=== PATIENT | female | born 1975 | race Caucasian/White ===

== ENCOUNTER 2022-05-03 10:48 | Emergency (ER) | payer OTHER ==
[~2022-05-03] VITALS: Ht 162.6 cm; Wt 77.1 kg
[2022-05-03 10:51] VITALS: BP_SYST 140
--- NOTE | 2022-05-03 10:55 | NUR ---
Placed in room 4 . Placed on youth nutritional monitor, blood pressure machine and pulse oximeter. To gown for exam. Side rails up. Report given to KARIN REYES.
--- NOTE | 2022-05-03 11:12 | NUR ---
Dr Kincaid placed orders for patient
[2022-05-03] MEDS ORDERED: HYDROmorphone 1 MG/ML INJ. CARTRIDGE IM ONE (11:15)
[2022-05-03] MEDS ORDERED: GABAPENTIN 100 MG CAPSULE PO ONE (11:15)
--- NOTE | 2022-05-03 11:30 | NUR ---
FIRST CONTACT WITH PT. PT REPORTS L ARM PAIN. PT HAD LYMPH NODES REMOVED 03/04/22, NOW HAS LYMPHEDEMA. PT AWAITING LYMPHEDEMA TREATMENT. PT TOOK NORCO AT HOME WHICH IS NOT HELPING. L ARM IS EXTREMELY SWOLLEN DOWN TO HAND, MILD ECCHYMOSIS NOTED TO L UPPER CHEST PAIN WHERE SWELLING IS. +CMS. 09/03 PAIN. RESP EVEN AND UNLABORED. VSS. ACCOMPANIED BY FRIEND
[2022-05-03] MEDS ORDERED: NEU300 PO (12:54)
[2022-05-03] MEDS ORDERED: MORP15TA60 PO (12:54)
[2022-05-03] MEDS ORDERED: IBUP-1969 PO (12:54)
--- NOTE | 2022-05-03 13:16 | NUR ---
DC INSTRUCTIONS GIVEN AND DISCUSSED, RXS REVIEWED. QUESTIONS ANSWERED. PT REPORTS IMPROVEMENT IN PAIN, 03/04. VERB UNDERSTANDING. VSS. ACCOMPANIED BY FRIEND. PT IS STABLE FOR DC HOME
[2022-05-03 13:21] VITALS: BP_SYST 132
== END 2022-05-03 13:16 | disposition home or self-care (01) ==
LOC: SED 10:48
DX: I97.2 Postmastectomy lymphedema syndrome (principal); M79.602 Pain in left arm
CPT/HCPCS: 96372; 99283; J1170

== ENCOUNTER 2022-05-13 18:27 | Inpatient (IN) | payer OTHER ==
[~2022-05-13] VITALS: Ht 162.6 cm; Wt 77.1 kg
[2022-05-13 18:27] VITALS: BP_SYST 140
[~2022-05-13 18:27] MED LIST: IBUP-1969 PO; MORP15TA60 PO; NEU300 PO
--- NOTE | 2022-05-13 18:27 | NUR ---
BROUGHT BACK TO BED #7 AND TRIAGED. REPORT GIVEN TO DEMETRIUS
--- NOTE | 2022-05-13 18:32 | NUR ---
DR FRANCISCO AT BEDSIDE FOR EVALUATION
--- NOTE | 2022-05-13 18:46 | NUR ---
LEFT ARM SWOLLEN +4 SINCE FEBRUARY
[2022-05-13] MEDS ORDERED: MORPHINE 4 MG INJ. 4 MG/ML VIAL IVP ONE ×2 (19:00→21:00)
--- NOTE | 2022-05-13 19:19 | NUR ---
REPORT RECIEVED FROM KAIRN ROMO. PT IN BED RESTING, FAMILY MEMBER AT THE BEDSIDE. WILL MONITOR NEEDED
[2022-05-13 19:21] LABS: ANION GAP 7 (5-15); CALCIUM 8.8 mg/dL (8.4-11.0); CHLORIDE 102 mmol/L (98-107); CREATININE 0.64 mg/dL (0.55-1.30); GLUCOSE 114 mg/dL (70-99); POTASSIUM 3.5 mmol/L (3.5-5.1); SODIUM SERUM 135 mmol/L (136-145); UREA NITROGEN, BLOOD 9 mg/dL (8-21)
[2022-05-13 19:23] LABS: BASOPHILS % (AUTO) 0.7 % (0.0-2.0); EOSINOPHILS # (AUTO) 0.2 K/uL (0.0-0.4); EOSINOPHILS % (AUTO) 2.7 % (0.0-4.0); HEMATOCRIT 40.2 % (36-48); HEMOGLOBIN 14.1 g/dL (12.0-16.0); LYMPHOCYTES # (AUTO) 1.2 K/uL (1.0-5.5); LYMPHOCYTES % (AUTO) 19.2 % (20.5-51.5); MEAN CORPUSCULAR HEMOGLOBIN 31 pg (27-31); MEAN CORPUSCULAR HGB CONC 35 % (32-36); MEAN CORPUSCULAR VOLUME 90 fL (79.0-98.0); MONOCYTES # (AUTO) 0.5 K/uL (0.0-1.0); MONOCYTES % (AUTO) 8.1 % (1.7-9.3); NEUTROPHILS # (AUTO) 4.4 K/uL (1.8-7.7); NEUTROPHILS % (AUTO) 69.3 % (40.0-70.0); PLATELET COUNT (AUTO) 256 K/uL (130-430); RED BLOOD CELL COUNT(AUTO) 4.48 MIL/uL (4.2-6.2); RED CELL DISTRIBUTION WIDTH 12.5 % (9.0-15.0); WHITE BLOOD COUNT (AUTO) 6.3 K/uL (4.8-10.8)
[2022-05-13 19:30] LABS: ALANINE AMINOTRANSFERASE 21 U/L (12-78); ASPARTATE AMINOTRANSFERASE 30 U/L (10-37); TOTAL BILIRUBIN 0.1 mg/dL (0.0-1.0)
[2022-05-13 19:32] LABS: GFR AFRICAN AMERICAN 127 mL/min (>90)
--- NOTE | 2022-05-13 19:46 | NUR ---
PT LEFT ARM PLACED ON PILLOW FOR COMFORT. MD FRANCISCO AT THE BEDSIDE FOR UPDATE ON PT PLAN OF CARE. PT PENDING ADMISSION.
--- NOTE | 2022-05-13 19:55 | NUR ---
covid dain done at bedside and sent to lab
--- NOTE | 2022-05-13 20:55 | NUR ---
Called Admitting and vaishali King about calling [facility] of patient
[2022-05-13] MEDS ORDERED: ALBUTEROL SULFATE 0.083% 2.5 MG/3 ML VIAL.NEB INH PRN (22:00)
[2022-05-13] MEDS ORDERED: ACETAMINOPHEN 325 MG TABLET PO PRN (22:00)
[2022-05-13] MEDS ORDERED: ENOXAPARIN SODIUM 80 MG/0.8 ML SYRINGE SUBCUT ONE (22:15)
--- NOTE | 2022-05-13 22:28 | NUR ---
Admit bed requested Patient will be admitted to care of . Admitted to MED SURG unit. Diagnosis LEFT LYMPHEDEMA,LEFT PLEURAL EFFUSION Inpatient (Yes or No) YES Observation (Yes or No) NO Orientation concerns or request close to nursing station (Yes or No) NO Covid Status NEGATIVE On vent or bipap NO Isolation requirements NO Needs a sitter NO From Home (Yes or if No enter name of facility) YES Requires Dialysis (Yes or No) NO Med Rec Completed (Yes of No) PENDING
--- NOTE | 2022-05-13 23:35 | NUR ---
PT IN BED RESTING, WATCHING TV. PENDING ADMISSION. WILL MONITOR NEEDED
[2022-05-14] MEDS: cefTRIAXone 1 GM IVPB PREMIX 50 ML IV SCH ×2 (00:19→22:52)
[2022-05-14] MEDS: ENOXAPARIN SODIUM 40 MG/0.4 ML SYRINGE SUBCUT SCH ×2 (00:21→10:39)
[2022-05-14] MEDS: HYDROcodone/ACETAMIN 5-325 MG TAB (NORCO/ VICODIN) PO PRN ×3 (01:50→17:40)
--- NOTE | 2022-05-14 02:16 | NUR ---
pt in bed resting no acute distress, pt pending admission. will monitor closely
[2022-05-14 04:39] LABS: BASOPHILS % (AUTO) 0.6 % (0.0-2.0); EOSINOPHILS # (AUTO) 0.1 K/uL (0.0-0.4); EOSINOPHILS % (AUTO) 2.5 % (0.0-4.0); HEMATOCRIT 38.4 % (36-48); HEMOGLOBIN 13.5 g/dL (12.0-16.0); LYMPHOCYTES # (AUTO) 1.3 K/uL (1.0-5.5); LYMPHOCYTES % (AUTO) 23.6 % (20.5-51.5); MEAN CORPUSCULAR HEMOGLOBIN 31 pg (27-31); MEAN CORPUSCULAR HGB CONC 35 % (32-36); MEAN CORPUSCULAR VOLUME 89 fL (79.0-98.0); MONOCYTES # (AUTO) 0.6 K/uL (0.0-1.0); MONOCYTES % (AUTO) 10.3 % (1.7-9.3); NEUTROPHILS # (AUTO) 3.4 K/uL (1.8-7.7); PLATELET COUNT (AUTO) 247 K/uL (130-430); RED BLOOD CELL COUNT(AUTO) 4.32 MIL/uL (4.2-6.2); RED CELL DISTRIBUTION WIDTH 12.6 % (9.0-15.0); WHITE BLOOD COUNT (AUTO) 5.5 K/uL (4.8-10.8)
[2022-05-14 04:45] LABS: CALCIUM 8.4 mg/dL (8.4-11.0); CREATININE 0.5 mg/dL (0.55-1.30); POTASSIUM 3.4 mmol/L (3.5-5.1)
--- NOTE | 2022-05-14 05:39 | NUR ---
pt up to ambulate to restroom, pt provided with floor bed for comfort. pt left upper extremity elevated with pillow for comfort, will monitor as needed
--- NOTE | 2022-05-14 07:15 | NUR ---
REPORT RECIEVED FROM KARIN WALTON FOR CONTINUING CARE
--- NOTE | 2022-05-14 07:20 | NUR ---
Received report from KARIN Lagos. Spoke with patient about plan of care and current symptoms. Patient states she is experiencing severe pain 9/10 located L arm, ran elbow. Will discuss additional pain management options with doctor. Shifted patient's pillows and administered medications as ordered. Observed heart rate of 110, other VS WNL.
--- NOTE | 2022-05-14 07:35 | NUR ---
BREAKFAST TRAY PROVIDED TO PT
[2022-05-14] MEDS: MORPHINE 2 MG/ML INJ. SYRINGE IVP PRN ×2 (09:25→14:11)
--- NOTE | 2022-05-14 10:30 | NUR ---
DR. US AT THE BEDSIDE
--- NOTE | 2022-05-14 12:06 | NUR ---
REPORT GIVEN TO KARIN OVERTON FOR CONTINUING CARE
[2022-05-14] MEDS ORDERED: MORPHINE 2 MG/ML INJ. SYRINGE ONE (14:10)
[2022-05-14] MEDS ORDERED: HYDROcodone/ACETAMIN 5-325 MG TAB (NORCO/ VICODIN) ONE (17:41)
--- NOTE | 2022-05-14 18:34 | NUR ---
NO ACUTE CHNAGES IN CONDITION, PT IN NAD. RESP EVEN AND UNLABORED, ON RA @98%.
--- NOTE | 2022-05-14 19:20 | NUR ---
Received report at this time. Pt resting in bed with eyes closed. No acute distress noted.
--- NOTE | 2022-05-14 19:23 | NUR ---
report given to doris kylebottom turner
--- NOTE | 2022-05-14 20:15 | NUR ---
Patient will be admitted to care of Dr. Wheeler . Admitted to Med/Surg unit. Will go to room 100-B. Belongings list completed. Complete and up to date summary report printed. SBAR report given at bedside to KARIN Morris with opportunity for questions.
--- NOTE | 2022-05-14 20:30 | NUR ---
PATIENT ARRIVED TO [facility]/TELE VIA BED FROM ER WITH KAMRON FRAZIER AND RECEIVED REPORT FROM KAMRON FRAZIER. PT IS AO X 4. PT HAS SOME CLOTHES, SHOES AND A PURSE WITH HER. CURRENT VITAL SIGNS: T:98.0, HR:81, RR:16, SPO2:94%, BP:123/77 (92). PT HAS LEFT ARM LYMPHEDEMA AND A LEFT PLEURAL EFFUSION. PT HAS A PIV IN THE RAC SALINE LOCK. PT IS ABLE TO AMBULATE AND GO TO THE BATHROOM. NO PRESSURE INJURIES NOTED, SKIN IS INTACT (EXCEPT FOR LEFT MASTECTOMY SCAR AND L ARM MIDDLE FINGER ECCHYMOSIS) BED IN LOWEST POSITION, SIDE RAILS UP x2, CALL LIGHT IN REACH. WILL CONTINUE TO MONITOR PATIENT.
[2022-05-14 21:57] VITALS: BP_SYST 123
[2022-05-14] MEDS ORDERED: cefTRIAXone 1 GM IVPB PREMIX 50 ML IV ONE (22:06)
--- NOTE | 2022-05-15 07:30 | NUR ---
PATIENT IS SITTING IN BED ON THE PHONE. PATIENT IS ALERT AND ORIENTED TO PERSON, PLACE, TIME, AND EVENT. PATIENT HAS GLASSES ON BUT PUPUILS ARE PERRLA. RESPIRATIONS ARE WNL, SYMMETRICAL AND UNLABORED. OXYGEN SATURATION IS 97%. PATIENT STOMACH IS FLAT AND NON-DISTENDED. LAST BOWEL MOVEMENT WAS THIS MORNING REPORTED BY PATIENT. PATIENT DOES FEEL CONSTIPATED AND IS ASKING FOR MEDICATION. PT HAS WRAP ON L ARM FROM LYMPHEDEMA AND SWELLING. RECEIVED CALL FROM PROVIDER TO PREPARE FOR THORACENTESIS. CONSENT SIGNED AND AREA SETUP FOR PREOCEDURE.
[2022-05-15] MEDS: HYDROcodone/ACETAMIN 5-325 MG TAB (NORCO/ VICODIN) PO PRN ×3 (08:08→21:50)
--- NOTE | 2022-05-15 08:30 | NUR ---
THORACENTESIS COMPLETE AND VIAL SENT TO THE LAB FOR TESTING. PATIENT IS NOT REPORTING ANY PAIN OR DISCOMFORT.
[2022-05-15] MEDS: ENOXAPARIN SODIUM 40 MG/0.4 ML SYRINGE SUBCUT SCH (09:10)
--- NOTE | 2022-05-15 12:30 | NUR ---
NEW ORDERS FOR PAIN MEDICATION RECEIVED.
[2022-05-15] MEDS ORDERED: NALOXONE HCL 0.4 MG/ML AMP (NARCAN) IVP PRN (13:15)
[2022-05-15 14:52] LABS: APPEARANCE,SPUN,BODY FLUID CLEAR (CLEAR); BF APPEARANCE UNSPUN HAZY (CLEAR); BODY FLUID SOURCE/ TYPE PLEURAL; SOURCE/TYPE ,BODY FLUID THORACENTESIS
[2022-05-15 14:53] LABS: BODY FLUID COLOR YELLOW (LT YELLOW); BODY FLUID TOTAL VOLUME 525 mL; MONOCYTES,BODY FLUID 87 %; NEUTROPHIL, BODY FLUID 13 %; RBC, BODY FLUID 74 /uL; WBC, BODY FLUID 293 /uL
[2022-05-15] MEDS: HYDROmorphone 1 MG/ML INJ. CARTRIDGE IVP PRN (16:59)
--- NOTE | 2022-05-15 19:56 | NUR ---
OPEN NOTE Patient in bed resting. Patient denies pain, no sign of discomfort. Patient is A/0 X4. IV is clean, dry, intact. Patient noted with left arm pressure bandages intact. All needs met at this time and safety checks made.
[2022-05-15 20:15] VITALS: BP_SYST 138
--- NOTE | 2022-05-15 20:55 | NUR ---
DOCTOR CALL Placed call to to inform that potassium on 05/14/2022 at 0400 was noted to be 3.4. MD gave new orders to redraw labs tomorrow.
[2022-05-15] MEDS: cefTRIAXone 1 GM IVPB PREMIX 50 ML IV SCH (21:52)
[2022-05-16 00:04] VITALS: BP_SYST 144
[2022-05-16] MEDS: HYDROmorphone 1 MG/ML INJ. CARTRIDGE IVP PRN ×3 (01:29→12:18)
--- NOTE | 2022-05-16 07:03 | NUR ---
OPEN NOTE Patient in bed resting. Patient is A/0 X4. IV is clean, dry, intact. Patient noted with left arm pressure bandages intact. All needs met at this time and safety checks made. Addendum: 05/16/22 at 0720 by Kamila Reynoso LVN CLOSE NOTE Patient in bed resting. Patient is A/0 X4. IV is clean, dry, intact. Patient complaining of pain 7/10 and IV pain medication given at this time. Patient noted with left arm pressure bandages intact. All needs met at this time and safety checks made.
[2022-05-16 08:00] VITALS: BP_SYST 136
[2022-05-16] MEDS: ENOXAPARIN SODIUM 40 MG/0.4 ML SYRINGE SUBCUT SCH (08:59)
[2022-05-16 12:00] VITALS: BP_SYST 138
[2022-05-16 16:33] VITALS: BP_SYST 138
--- NOTE | 2022-05-16 19:00 | NUR ---
Miss Jett has been assessed as indicated. She has a compression dressing placed on her left hand and arms, placed by this writer technical publications.This writer technical publications reached out to the lymphedema clinic that Miss Jett will visit next week.(Beulah Collier)This contact required an extraordinary effort with several repeated calls to the clinic at [facility] [phone]. it was suggested that miracle bandages be used at 30-50% compression on her arm and gauze be used to wrap the fingers. This was applied at 50% compression but was uncomfortable. the wraps were removed and re-applied at 30% this was more comfortable. Miss Jett was educated on how to check for proper circulation on her fingers. she was reminded several times that the acs badges were easy to remove and should be removed is she became uncomfortable or if she felt like she did not have adequate circulation to her fingers. She expressed that she understood these instructions. Just prior to DC she was offered IV pain medication. She declined stating that she had just taken a [place] that she had in her purse. She was reminded that she should not take home medications while in the hospital. Miss Jett was DC to home. DC instructions were reviewed. She expressed that she understood these instructions. She states that she does not have a [employer] helicopter. She was encouraged to ask her healthcare provider for the needed steps to be connected to one that was with in her network. She has an appointment with a lymphedema clinic on Saturday. extensive efforts were made to wrap the affected arm with compression that was comfortable safe and pain relieving as well. She expressed that she had some relief and would keep her upcoming appointment. IV access was removed. DC instructions were reviewed. Miss Nevarez expressed her understanding and signed a document to this affect. At the time of DC she had no s/s of distress or discomfort. She was compliant with the plan to DC to home. she was driven in a private vehicle by her mother.
== END 2022-05-16 19:00 | disposition home or self-care (01) | DRG 187 ==
LOC: SED 18:27 → SMU 21:49
PROVIDERS: ADMIT Internal Medicine Hospice and Palliative Medicine; ATTEND Internal Medicine Hospice and Palliative Medicine
PROC: 0W9B3ZZ Drainage of Left Pleural Cavity, Percutaneous Approach (ICD-10-PCS; principal; 2022-05-15)
DX: J90 Pleural effusion, not elsewhere classified (principal); E44.0 Moderate protein-calorie malnutrition; R65.10 Systemic inflammatory response syndrome (SIRS) of non-infectious origin without acute organ dysfunction; I89.0 Lymphedema, not elsewhere classified; Z20.822 Contact with and (suspected) exposure to COVID-19; Z85.3 Personal history of malignant neoplasm of breast; Z90.10 Acquired absence of unspecified breast and nipple; Z68.29 Body mass index [BMI] 29.0-29.9, adult
CPT/HCPCS: 32555; 36415; 71045; 71250-TC; 76376; 76604; 80048; 80053; 82947; 83880; 84132; 84157; 84484; 85025; 85379; 87070-TC; 87186-TC; 88108; 89051-TC; 89060-TC; 93005; 93971; 96372; 96374; 96376; 99285; J0696; J1170; J1650; J2270